=== PATIENT | male | born 1995 | race African-American/Black ===

== ENCOUNTER 2020-07-05 23:32 | Emergency (ER) | payer OTHER ==
[~2020-07-05] VITALS: Ht 182.9 cm; Wt 79.0 kg
[2020-07-06] MEDS ORDERED: KETOROLAC 30MG/ML VIAL IV STA (00:28)
[2020-07-06] MEDS ORDERED: ONDANSETRON HCL 4MG/2ML INJ IV STA (00:28)
[2020-07-06] MEDS ORDERED: SODIUM CHLORIDE 0.9% 1,000 ML IV ONE (00:30)
[2020-07-06 01:03] LABS: BASOPHILS % 0.4 % (0.0-2.0); EOSINOPHILS % 1.2 % (0.0-5.0); HEMATOCRIT. 38.7 % (42.0-52.0); HEMOGLOBIN. 13.3 g/dL (14.0-18.0); LYMPHOCYTES % 13.2 % (20.0-50.0); MEAN CORPUSCULAR VOLUME 90.1 fL (80.0-94.0); MEAN PLATELET VOLUME 9.2 fl (7.4-10.4); MONOCYTES % 3.3 % (2.0-8.0); NEUTROPHILS % 81.9 % (40.0-76.0); PLATELET 107 x1000/uL (130-400); RED BLOOD CELL COUNT 4.29 mill/uL (4.7-6.1); RED CELL DISTRIBUTION WIDTH 13.1 % (11.6-14.6)
[2020-07-06 01:06] LABS: CHLORIDE 109 mEq/L (98-107)
[2020-07-06 01:11] LABS: ETHANOL BLOOD < 10 mg/dL
[2020-07-06 01:48] LABS: INR 1.2; PROTHROMBIN TIME 12.7 sec (9.6-11.0)
[2020-07-06] MEDS ORDERED: POTASSIUM CHLORIDE 20MEQ TABLET SR PO NR (02:00)
[2020-07-06] MEDS ORDERED: IOHEXOL-300 100 ML BOTTLE ONE (02:28)
[2020-07-06] MEDS ORDERED: HYDROCODONE/ACETAMINOPHEN 10/325MG TABLET PO ONE (06:00)
[2020-07-06 06:06] VITALS: BP 142/67
== END 2020-07-06 06:34 | disposition home or self-care (01) ==
LOC: ER 23:32
DX: N13.30 Unspecified hydronephrosis (principal); N20.0 Calculus of kidney; F12.10 Cannabis abuse, uncomplicated
CPT/HCPCS: 36415; 74177; 76700; 80053; 80320; 83605; 83690; 84145; 85025; 85610; 87040; 96361; 96374; 96375; 99285; J1885; J2405; J7030; Q9967; G0480